=== PATIENT | male | born 2000 | race American Indian/Alaskan Native ===

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

== ENCOUNTER 2019-08-12 16:32 | Emergency (ER) | payer SELFPAY ==
[2019-08-12 16:47] VITALS: BP 105/54
--- NOTE | 2019-08-12 16:55 | Emergency Department Report ---
Minor Respiratory - HPI Chief Complaint: Upper Respiratory Infection Stated Complaint: BODY PAIN X3WKS Time Seen by Provider: 08/12/19 16:47 Duration: 3 weeks Pain Location: Throat, Nose Severity: mild Minor Respiratory: Yes Rhinorrhea, Yes Sore Throat, Yes Able to Tolerate Fluids, Yes Cough, Yes Sick Contacts, Yes Fever, No Ear Pain, No Hemoptysis, No Chest Pain, No Shortness of Breath Other History: This is a 19-year-old male that presents to the ER with cough, sore throat, congestion, fever, and myalgia for 3 weeks. Patient states he is taking antibiotics with no improvement of symptoms. He also reports left ear pain for serveral days. Denies muffled hearing, discharge from ear, chest pain, shortness of breath, weakness, palpitaitons, nausea, vomiting, or diarrhea. ED Review of Systems ROS: Stated complaint: BODY PAIN X3WKS Other details as noted in HPI Constitutional: fever. denies: chills, weakness ENT: ear pain (left), congestion. denies: throat pain, hearing loss Respiratory: cough. denies: shortness of breath, wheezing Cardiovascular: denies: chest pain, palpitations Gastrointestinal: denies: abdominal pain, nausea, diarrhea Musculoskeletal: denies: back pain, joint swelling, arthralgia, myalgia Skin: denies: rash, lesions Neurological: denies: headache, weakness, paresthesias Psychiatric: denies: anxiety, depression ED Past Medical Hx - Past Medical History Previous Medical History?: No - Surgical History Past Surgical History?: No - Social History Smoking Status: Current Every Day Smoker Substance Use Type: None - Medications Home Medications: Home Medications Medication Instructions Recorded Confirmed Last Taken Type Carbamide Peroxide 6.5% [Ear Wax 8 - 10 drops OT BID 7 Days #1 08/12/19 Unknown Rx Drops] bottle Fluticasone [Flonase] 1 spray NS QDAY #1 bottle 08/12/19 Unknown Rx methylPREDNISolone [Medrol 4MG 4 mg PO DAILY #1 tab.ds.pk 08/12/19 Unknown Rx DOSEPAK (21 tabs)] Minor Respiratory Exam - Exam General: Vital signs noted. No distress. Alert and acting appropriately. HEENT: Yes Pharyngeal Erythema (uvula midline, erythema posterior pharynex), Yes Moist Mucous Membranes, Yes Rhinorrhea (turbinates congested with clear discharge), No Pharyngeal Exudates, No Conjuctival Injection, No Frontal Tenderness, No Maxillary Tenderness Ear: Neither TM Bulge (cerumen impaction on left), Neither TM Erythema, Neither EAC Pain, Neither EAC Discharge Neck: Yes Supple, No Adenopathy Lungs: Yes Good Air Exchange, No Wheezes, No Ronchi, No Stridor, No Cough, No Labored Respirations, No Retractions, No Use of Accessory Muscles, No Other Abnormal Lung Sounds Heart: Yes Regular, No Murmur Abdomen: Yes Normal Bowel Sounds, No Tenderness, No Peritoneal Signs Skin: No Rash, No Edema Neurologic: Alert and oriented, no deficits. Musculoskeletal: Unremarkable. ED Course Vital Signs 08/12/19 08/12/19 08/12/19 16:40 16:45 16:47 Temperature 98.7 F Pulse Rate 103 H Respiratory 18 18 Rate Blood Pressure 134/76 105/54 ED Medical Decision Making - Medical Decision Making A/P Acute Nasopharyngitis and cerumen impaction 1- Vitals are stable and patient in no acute distress. 2- Start medrol dose pack, flonase, and debrox. 3- Instructed to purchase OTC robitussin and claritin. 4- Instructed to wash hands frequently 5- Follow-up with a primary care doctor in 3-5 days or if symptoms worsen and continue return to the emergency department as soon as possible. Critical care attestation.: If time is entered above; I have spent that time in minutes in the direct care of this critically ill patient, excluding procedure time. ED Disposition Clinical Impression: Impacted cerumen of left ear, Nasopharyngitis acute Disposition: DC- TO HOME OR SELFCARE Is pt being admited?: No Condition: Stable Instructions: Cold Symptoms (ED), Upper Respiratory Infection (ED), Cerumen Impaction (ED) Additional Instructions: Purchase debrox, robitussin, and claritin from the pharmacy when you pick up operator your prescriptions. Debrox ear wax removal can be applied twice a day to terrazzo finisher helper in drainage of wax buildup. Follow-up with a primary care doctor in 3-5 days or if symptoms worsen and continue return to the emergency department as soon as possible. Prescriptions: Carbamide Peroxide 6.5% [Ear Wax Drops] 8 - 10 drops OT BID 7 Days #1 bottle Fluticasone [Flonase] 1 spray NS QDAY #1 bottle methylPREDNISolone [Medrol 4MG DOSEPAK (21 tabs)] 4 mg PO DAILY #1 tab.ds.pk Referrals: [facility] [place] [Outside] - 3-5 Days [facility] [Outside] - 3-5 Days [facility] [Outside] - 3-5 Days Forms: Work/School Release Form(ED) Time of Disposition: 17:43
== END 2019-08-12 18:14 | disposition home or self-care (01) ==
LOC: ED 16:32
DX: J00 Acute nasopharyngitis [common cold] (principal); H61.22 Impacted cerumen, left ear; F17.200 Nicotine dependence, unspecified, uncomplicated; Z79.899 Other long term (current) drug therapy
CPT/HCPCS: 99282